=== PATIENT | male | born 1990 | race Caucasian/White ===

== ENCOUNTER 2023-05-08 18:54 | Emergency (ER) | payer MEDICAID ==
[~2023-05-08] VITALS: Ht 157.5 cm; Wt 68.9 kg
[2023-05-08 19:40] VITALS: BP 114/57; PULSE 94; RESP 18; TEMP 98.3; O2SAT 95
[2023-05-08] MEDS ORDERED: LIDOCAINE 1% 500 MG/ 50 ML VIAL INJ ONE (19:50)
[2023-05-08 19:53] VITALS: O2SAT 95
[2023-05-08] MEDS ORDERED: ACETAMINOPHEN 325 MG TAB PO ONE (20:10)
[2023-05-08] MEDS ORDERED: LIDOCAINE MPF 1% 5 ML ONE (20:25)
[2023-05-08] MEDS ORDERED: HYDROcodone/APAP 5/325 MG 1 TAB TAB PO ONE (20:40)
[2023-05-08] MEDS ORDERED: BACITRACIN OINT 500 UNITS/GM PKT TP ONE (20:40)
[2023-05-08] MEDS ORDERED: HYDR-5191 PO (21:13)
== END 2023-05-08 21:25 | disposition home or self-care (01) ==
LOC: MED 18:54
DX: S01.01XA Laceration without foreign body of scalp, initial encounter (principal); W18.2XXA Fall in (into) shower or empty bathtub, initial encounter; Y92.89 Other specified places as the place of occurrence of the external cause; Y93.89 Activity, other specified; Y99.8 Other external cause status
CPT/HCPCS: 12002; 70450; 99284; J2001

== ENCOUNTER 2023-05-16 10:20 | Emergency (ER) | payer MEDICAID ==
[~2023-05-16] VITALS: Ht 157.5 cm; Wt 68.5 kg
[~2023-05-16 10:20] MED LIST: HYDR-5191 PO
[2023-05-16 10:32] VITALS: BP 112/76; PULSE 71; RESP 18; TEMP 98.2; O2SAT 99
[2023-05-16 11:02] VITALS: BP 112/76; PULSE 71; RESP 18; TEMP 98.2; O2SAT 99
== END 2023-05-16 11:02 | disposition home or self-care (01) ==
LOC: MED 10:20
DX: S01.91XD Laceration without foreign body of unspecified part of head, subsequent encounter (principal); Z48.02 Encounter for removal of sutures; Z79.899 Other long term (current) drug therapy; X58.XXXD Exposure to other specified factors, subsequent encounter
CPT/HCPCS: 99281